=== PATIENT | male | born 1990 | race Caucasian/White ===

== ENCOUNTER 2018-04-11 09:17 | Emergency (ER) | payer OTHER, SELFPAY ==
[2018-04-11 09:22] VITALS: BP 134/79; PULSE 69; RESP 14; TEMP 36.6; O2SAT 100; BMI 28.8
--- NOTE | 2018-04-11 10:16 | DI.RAD.S_ITS ---
PROCEDURE: XR LUMBAR SPINE 2-3V INDICATIONS: midline pain, no injury TECHNIQUE: 3 views of the lumbar spine were acquired. COMPARISON: None. FINDINGS: Bones: 5 [id number] vertebrae are present. There is normal bony alignment. No vertebral body compression fractures. No suspicious bony lesions. There are mild degenerative changes of the lower lumbar spine. Mild straightening of the normal lumbar lordosis is present. No significant spondylolisthesis is evident. Soft tissues: Overlying bowel gas pattern is normal. No suspicious soft tissue calcifications. IMPRESSION: Mild degenerative changes of the lumbar spine. No fractures. Dictated by: Maxx King M.D. on 04/11/2018 at 9:56 Approved by: Maxx King M.D. on 04/11/2018 at 10:11
--- NOTE | 2018-04-11 10:18 | ED.BACK ---
HPI - Back Pain/Injury General Chief Complaint: Back Pain/Injury Stated Complaint: BACK PAIN Time Seen by Provider: 04/11/18 09:58 Source: patient Mode of arrival: ambulatory Limitations: no limitations History of Present Illness HPI Narrative: Patient is a 28-year-old male who presents with lower back pain. This is been ongoing for years but worse over the last few weeks. He has been taking Motrin and Flexeril he had his 1st session of physical therapy. He has midline pain and if he sits too long his right foot goes numb. He has no changes in bowel or bladder habits. MD Complaint: back pain Related Data Home Medications Medication Instructions Recorded Confirmed cyclobenzaprine 1 tab PO PRN PRN 04/11/18 04/11/18 ibuprofen 1 tab PO TID PRN 04/11/18 04/11/18 lidocaine 1 patch TOPICAL PRN PRN 04/11/18 04/11/18 prednisone 1 dose PO DIRECTED 04/11/18 04/11/18 Allergies Allergy/AdvReac Type Severity Reaction Status Date / Time No Known Drug Allergies Allergy Verified 04/11/18 09:21 Review of Systems Review of Systems All systems reviewed & are unremarkable except as noted in HPI and below Constitutional Denies chills, Denies fever(s), Denies lethargy and Denies weakness Cardiovascular Denies chest pain, Denies irregular heart rhythm, Denies lightheadedness, Denies palpitations, Denies dyspnea, Denies dyspnea on exertion and Denies orthopnea Respiratory Denies cough, Denies dyspnea, Denies dyspnea on exertion and Denies wheezing Gastrointestinal Gastrointestinal: Denies abdominal pain, Denies change in bowel habits, Denies diarrhea, Denies nausea and Denies vomiting Musculoskeletal Reports as per HPI and Reports tingling Integumentary/Breasts Denies pruritus, Denies erythema, Denies rash and Denies wounds Neurologic Reports as per HPI, Reports tingling and Denies weakness Endocrine Denies palpitations Allergic/Immunologic Denies wheezing [facility] Medical History Chronic back pain (Acute) Social History Smoking Status: Never smoker alcohol intake: never substance use type: does not use Exam Initial Vital Signs Initial Vital Signs: Vital Signs Temperature 97.9 F 04/11/18 09:22 Pulse Rate 69 04/11/18 09:22 Respiratory Rate 14 04/11/18 09:22 Blood Pressure 134/79 04/11/18 09:22 Pulse Oximetry 100 04/11/18 09:22 GENERAL: Well-appearing, well-nourished and in no acute distress. HEENT: Head atraumatic,EOMI, pupils reactive, face symmetric CARDIOVASCULAR: Regular rate and rhythm without murmurs, rubs or gallops. RESPIRATORY: Breath sounds equal bilaterally, no wheezes rales or rhonchi. ABDOMEN: Soft, nontender. Normoactive bowel sounds all 4 quadrants. No guarding or rebound. BACK: Midline L2-L3 tenderness no step-offs EXTREMITIES: Normal range of motion, no clubbing or edema. Neurovascularly intact NEUROLOGICAL: Alert and oriented x4.Normal gait and speech. Cranial nerves II through XII grossly intact. Sensation to soft touch equal bilaterally in all extremities SKIN: Warm, dry, no laceration, no petechiae, no rashes or lesions. Course Orders Ordered: ED Orders 04/11/18 10:16 XR lumbar spine 2-3V Stat Vital Signs - 8 hr 04/11/18 09:22 Temperature 97.9 F Pulse Rate 69 Respiratory Rate 14 Blood Pressure 134/79 Pulse Oximetry 100 [facility] - Back Pain/Injury Imaging Data XR Lumbar: Radiologist's impression: PROCEDURE: XR LUMBAR SPINE 2-3V INDICATIONS: midline pain, no injury TECHNIQUE: 3 views of the lumbar spine were acquired. COMPARISON: None. FINDINGS: Bones: 5 [id number] vertebrae are present. There is normal bony alignment. No vertebral body compression fractures. No suspicious bony lesions. There are mild degenerative changes of the lower lumbar spine. Mild straightening of the normal lumbar lordosis is present. No significant spondylolisthesis is evident. Soft tissues: Overlying bowel gas pattern is normal. No suspicious soft tissue calcifications. IMPRESSION: Mild degenerative changes of the lumbar spine. No fractures. Dictated by: Maxx King M.D. on 04/11/2018 at 9:56 MDM Narrative Medical decision making narrative: Acute on chronic back pain. Patient has all medications at home he was offered a shot of Toradol which he declined. X-ray is negative. Recommend outpatient MRI and continue with physical therapy Discharge Plan Departure Patient Disposition: Home Clinical Impression: Lumbar radiculopathy, Acute exacerbation of chronic low back pain Discharge Date/Time: 04/11/18 11:26 Interventions: ED Discharge Assessment Last Done: 04/11/18 11:26 Instructions: DI for Low Back Pain Activity Restrictions/Additional Instructions: *You have been diagnosed with acute on chronic back pain *What to do: Continue with physical therapy no strenuous activity until healed may require outpatient MRI is with your primary care provider *Continue to take medications as directed *Follow up with your primary care provider in 2-3 days *Return to ER if you should have changes in bowel or bladder habits, increasing weakness or any new, worsening or concerning symptoms Prescriptions: No Action cyclobenzaprine 10 mg tablet 1 tab PO PRN PRN (Reason: Spasms) RF: 0 ibuprofen 800 mg tablet 1 tab PO TID PRN (Reason: pain) RF: 0 prednisone 20 mg tablet 1 dose PO DIRECTED RF: 0 lidocaine 5 % adhesive patch,medicated 1 patch Topical PRN PRN (Reason: pain) RF: 0
--- NOTE | 2018-04-11 10:35 | PC.NURSE ---
injured during volleyball game. Has been taking ibuprofen and flexeril for pain with minimal relief. Pain on spine and occasionally radiates into legs tingling in legs. No bowel or bladder loss
== END 2018-04-11 11:26 | disposition home or self-care (01) ==
PROVIDERS: Emergency Provider Emergency Medicine
DX: M54.16 Radiculopathy, lumbar region (principal); M54.5 Low back pain
CPT/HCPCS: 72100; 99282; 99283